=== PATIENT | male | born 1975 | race Caucasian/White ===

== ENCOUNTER → 2018-03-05 | Outpatient (CLI) | payer OTHER ==
[~2018-03-05] MED LIST: ASPI81TA28 PO; ATOR-24 PO; CARV12.52 PO; DULO60CA44 PO; DVN80 PO; ERGO500037 PO; HYDR-5688 PO; METF-384 PO; POTA10CA28 PO; SITA100T3 PO
[2018-03-05 14:29] LABS: BASO % 0.3 %; BASO ABS # 0.04 K/uL (0-0.2); EOS % 2.7 %; EOS ABS # 0.36 K/uL (0-0.5); HEMATOCRIT 42.8 % (42-52); HEMOGLOBIN 14.6 g/dL (14.0-18.0); IG# 0.05 K/uL (0.00-0.02); LYMPH % 22.6 %; LYMPH ABS # 3.04 K/uL (1.2-3.4); MEAN CORPUSCULAR HEMOGLOBIN 29.7 pg (25-34); MEAN CORPUSCULAR HGB CONC 34.1 g/dl (32-36); MEAN PLATELET VOLUME 10.1 fL (7.4-10.4); MONO % 5.8 %; MONO ABS # 0.78 K/uL (0.11-0.59); NEUT % 68.2 %; NEUT ABS # 9.16 K/uL (1.4-6.5); PLATELET COUNT 348 K/uL (130-400); RED CELL DISTRIBUTION WIDTH CV 12.9 % (11.5-14.5); RED CELL DISTRIBUTION WIDTH SD 41.1 fL (36.4-46.3); WHITE BLOOD COUNT 13.43 K/uL (4.8-10.8)
[2018-03-06 06:32] LABS: HEMOGLOBIN A1C 8.7 % (4.5-5.6)
== END | disposition home or self-care (01) ==
LOC: C.CPL 13:01
PROVIDERS: ATTEND Orthopaedic Surgery
DX: Z01.810 Encounter for preprocedural cardiovascular examination (principal); Z01.812 Encounter for preprocedural laboratory examination

== ENCOUNTER 2018-03-12 11:39 | Day surgery (SDC) | payer OTHER ==
[2018-03-03 11:41] VITALS: BMI 46.0
--- NOTE | 2018-03-11 11:43 | History and Physical ---
History & Physical Date Mar 11, 2018. Chief Complaint Patient presents as a 40-year-old white male with complaints of ongoing pain treatment to his left knee with a exam consistent of a torn medial meniscus he has positive Levar circumduction findings medial joint line pain and tenderness a small to moderate effusion no evidence of ligamentous instability presents with an MRI finding of a torn medial meniscus History of Present Illness Ongoing points of pain about his left knee consistent with that of a torn medial meniscus is been no response to conservative therapy including physical therapy anti-inflammatories relative rest activity modification MRI since that MRI is consistent with that of a medial meniscal tear clinicals physical examination is consistent with that of medial meniscal tear consistent with medial joint line pain tenderness Levar findings mild to moderate effusion no ligamentous instability is noted the patient is a 42 year old male with complaints of Past Medical/Surgical History Patient's past medical past medical history significant for myocardial infarction in 2013 as well as diabetes mellitus and sleep apnea for which she is on home CPAP she Additional History Hepatic Disease: No Endocrine Disorder: Yes Kidney Disease: No Hypertension: Yes Heart Disease: Yes Bleeding Tendencies: No Infectious Diseases: No Allergies Coded Allergies: No Known Allergies (Unverified , 03/03/18) Home Medications Scheduled Aspirin (Aspirin Ec), 81 MG PO QAM Atorvastatin (Lipitor), 40 MG PO QPM Carvedilol (Coreg), 12.5 MG PO BID Duloxetine Hcl (Cymbalta), 60 MG PO QAM Ergocalciferol (Vitamin D 45855 Unit), 50,000 UNIT PO WK Metformin Hcl (Glucophage), 1,000 MG PO BID Potassium Chloride (Micro-K Ext Rel), 10 MEQ PO BID Sitagliptin Phosphate (Januvia), 100 MG PO QAM Valsartan (Diovan), 80 MG PO QAM Scheduled PRN Hydrocodone/Acetaminophen 5MG/325MG ([place] 5MG/325MG), 1 TABLET PO PRN PRN for Pain Physical Examination Skin: warm/dry, no rash Eyes: normal inspection, EOMI, sclerae normal ENT: normal ENT inspection, pharynx normal Head: normocephalic, atraumatic Neck: supple, no adenopathy, trachea midline Respiratory/Chest: lungs clear, normal breath sounds, no respiratory distress Cardiovascular: regular rate, rhythm, no edema, no murmur Abdomen / GI: normal bowel sounds, non tender Back: normal inspection Extremities: normal inspection, normal range of motion, + pertinent finding ( Findings are consistent with that of the medial joint line pain and tenderness of the left knee positive Levar circumduction findings consistent with that of a tear of the medial meniscus) Neurologic/Psych: no motor/sensory deficits, alert, normal reflexes, oriented x 3 Diagnosis Left knee complex tear posterior horn medial meniscus no response to conservative management Plan of Treatment Plans for left knee arthroscopy partial posterior medial meniscectomy pending findings at time of surgery
[~2018-03-12] VITALS: Ht 180.3 cm; Wt 150.0 kg
[~2018-03-12 11:39] MED LIST changes: +ATROPINE SULFATE 0.1 MG/ML 5ML SYR IV PRN; +EpHEDrine SULFATE INJ 50 MG/ML AMP IV PRN; +LACTATED RINGER'S 1000ML 1,000 ML IV SCH; +ONDANSETRON INJ 2 MG/ML 2 ML VIAL IV PRN
[2018-03-12 12:23] VITALS: BP 128/75; PULSE 90; TEMP 37.4; O2SAT 95; Ht 180.3 cm; Wt 150.0 kg
[2018-03-12] MEDS ORDERED: FENTANYL CITRATE INJ 50 MCG/1 ML 2 ML VIAL ONE ×2 (12:56→15:08)
[2018-03-12] MEDS ORDERED: MIDAZOLAM HCL 1 MG/ML 2ML VIAL ONE ×2 (12:56)
[2018-03-12] MEDS ORDERED: NURSING VERBAL MED ORDER ONE (13:00)
[2018-03-12] MEDS ORDERED: CEFAZOLIN 3000MG IV PUSH 22.5 ML IV STA (13:01)
--- NOTE | 2018-03-12 13:01 | History & Physical Bridge Note ---
H&P Re-Evaluation Bridge Note: I have examined the patient, reviewed the History & Physical and in the interval since the performance of the History & Physical I have noted the following changes of clinical significance: No changes noted
[2018-03-12] MEDS ORDERED: BUPIVACAINE/EPINEPHRINE 0.5% MPF 1:200,000 30 ML VIAL ONE (14:01)
[2018-03-12] MEDS ORDERED: SODIUM CHLORIDE 0.9% 1000ML 1,000 ML IV SCH (14:03)
--- NOTE | 2018-03-12 14:05 | Discharge Instructions ---
Discharge Instructions Date of Service Mar 12, 2018. Visit Reason for Visit: Left Knee Other Medial Meniscus Tear, Current Inju Discharge Discharge Diagnosis / Problem: left knee arthroscopy partial menisectomy Discharge Goals Goal(s): Decrease discomfort, Improve function, Increase independence Activity Recommendations Activity Limitations: as noted below Weightbearing Status: Left weightbearing (as tolerated) Anesthesia . Post Anesthesia Instructions: If you have had General Anesthesia or IV Sedation: * Do not drive today. * Resume driving when surgeon permits. * Do not make important decisions or sign legal documents today. * Call surgeon for: 1. Temperature elevations greater than 101 degrees F. 2. Uncontrollable pain. 3. Excessive bleeding. 4. Persistent nausea and vomiting. 5. Medication intolerance (nausea, vomiting or rash). * For nausea and vomiting use only clear liquids such as: tea, soda, bouillon until nausea subsides, then gradually increase diet as tolerated. * If you have any concerns or questions, call your surgeon's office. If physician is unavailable and it is an emergency, call 911 or go to the nearest emergency room. . Instructions / Follow-Up Instructions / Follow-Up ACTIVITY RECOMMENDATIONS: * You may walk on the leg with or without crutches as comfort permits. * Bending of the knee should start at once. * Do not shower for 48 hours following surgery. SPECIAL CARE INSTRUCTIONS: * You may cleanse the skin adjacent to the small wounds with soap and water at the time of the first dressing change. * The application of an ice bag to the front and sides of the knee will decrease swelling and discomfort for the first 48 hours. * The small incisions may be sore and develop bruising. This bruising does not require any special care. SPECIAL PRECAUTIONS: * If you experience unusual pain unrelieved by prescriptions, temperature elevation (100 degrees F. or above) or progressive swelling or bleeding, you should contact our office at for further evaluation. * You may have been prescribed pain medication. If you experience nausea and/or fine skin rash, discontinue this medication and contact our office at for an alternate medication. DRESSING: * Dressing should be comfortable and absorb any leakage of fluid and/or blood. * The dressing may become moist or bloodstained. * Dressing may be removed _48 hours_ after surgery and bandaids placed over the small surgical incisions. If can be removed sooner if it becomes very soiled or loose. * Bandaids may be used over next several days as needed and can be discontinued when there is not further drainage from the wounds. FOLLOW UP VISIT: If appointment is not already scheduled: Please call [facility] to make a follow-up appointment for your surgery at . Diet Recommendations Recommended Home Diet: resume previous diet Pending Studies Studies pending at discharge: no Medical Emergencies . Who to Call and When: Medical Emergencies: If at any time you feel your situation is an emergency, please call 911 immediately. . Non-Emergent Contact Non-Emergency issues call your: Primary Care Provider, Surgeon . . "Provider Documentation" section prepared by Sang Richard. . [place] Drug Monitoring Program Search Results: patient reviewed within database, no issues identified
[2018-03-12] MEDS ORDERED: ONDANSETRON INJ 2 MG/ML 2 ML VIAL IV PRN (14:15)
[2018-03-12] MEDS ORDERED: HYDROCODONE/ACETAMIN 5/325MG TAB PO PRN ×2 (14:15)
[2018-03-12] MEDS ORDERED: HYDR-5688 PO (14:18)
[2018-03-12] MEDS ORDERED: PROPOFOL IV EMULSION 10 MG/ML 20 ML VIAL IV ONE (14:28)
[2018-03-12] MEDS ORDERED: DEXAMETHASONE SOD INJ 4 MG/ML VIAL ONE ×2 (14:28→14:29)
[2018-03-12] MEDS ORDERED: ONDANSETRON INJ 2 MG/ML 2 ML VIAL ONE (14:28)
[2018-03-12] MEDS ORDERED: LIDOCAINE HCL 2% 2 ML VIAL (20MG/ML) ONE (14:28)
[2018-03-12] MEDS ORDERED: SUCCINYLCHOLINE CHLORIDE 20 MG/ML 10 ML VIAL IV ONE (14:28)
--- NOTE | 2018-03-12 14:45 | [facility] Post Operative Brief Note ---
Immediate Operative Summary Operative Date Mar 12, 2018. Pre-Operative Diagnosis Left knee complex torn medial meniscus. Post-Operative Diagnosis Same as preop. Procedure(s) Performed Left Knee Arthroscopy with Partial Medial Menisectomy Surgeon Dr. Coelho Hearing Aid Repair Technician Surgeon(s) None Estimated Blood Loss 2 ml Findings Consistent with Post-Op Diagnosis Specimens None. Drains None Anesthesia Type General Complication(s) none Disposition Disposition: Recovery Room / PACU
--- NOTE | 2018-03-12 14:49 | [facility] Operative Report ---
Operative Report Operative Date Mar 12, 2018. Pre-Operative Diagnosis Left knee complex torn medial meniscus. Post-Operative Diagnosis Same as preop. Procedure(s) Performed Left Knee Arthroscopy with Partial Medial Menisectomy Surgeon Dr. Coelho Grounds Maintenance Supervisor Surgeon(s) None Estimated Blood Loss 2 ml Findings Patient presents with a complex tear posterior horn medial meniscus verify the MRI is clinical examination consistent with torn medial meniscus with positive Levar circumduction findings medial joint line pain tenderness with mild to moderate effusion palpable click along the posterior medial joint line Specimens None. Drains None Anesthesia Type General Complication(s) none Disposition Recovery Room / PACU Indications Failed attempts at conservative management including physical therapy bracing patient presents with ongoing mechanical symptoms with small to moderate effusion medial joint line pain and tenderness positive Levar circumduction findings exam as well as MRI scan consistent of a tear of the posterior horn of the medial meniscus Description of Procedure After proper prepping draping the left lower extremity are scop examination beginning the region of the medial compartment revealed to be evidence of a tear of the posterior horn of the medial meniscus involving the inner third is complex in nature the anterior posterior fusion was visualized and probably to be intact lateral meniscus was probed to be intact with some mild grade II chondromalacia involving the lateral tibial plateau patellofemoral joint was otherwise pristine there is some mild chondromalacia medial femoral condyle grade 2 involving approximately 2 x 2 centimeter her area in the medial weightbearing portion there is a complex tear of the posterior third of the inner third portion that had a flap radial parrot-beak type tear and partial posterior horn medial meniscectomy performed on particular matter debridement of the meniscal edge was trimmed back to stable margin with a series of meniscal punches as well as meniscal tremors subscale. Microdebriders removed medial lateral gutters were explored and no loose bodies were noted all pigmented region which was removed skin portals were closed with 4-0 nylon sterile compressive dressing was placed intravaginally articular injection of half percent Marcaine with epinephrine was injected into the knee joint compression dressing placed patient taken recovery in stable condition op report dictated by Meliton. I attest to the content of the Intraoperative Record and any orders documented therein. Any exceptions are noted below.
[2018-03-12] MEDS: FENTANYL CITRATE INJ 50 MCG/1 ML 2 ML VIAL IV PRN ×4 (15:07→15:22)
--- NOTE | 2018-03-12 15:40 | Anesthesiology Progress Note ---
Anesthesia Post Op Note Date & Time Mar 12, 2018 at 15:40 Vital Signs Pain Intensity: 4 Vital Signs Past 12 Hours Date Time Temp Pulse Resp B/P (MAP) Pulse Ox O2 Delivery O2 Flow Rate FiO2 03/12/18 15:30 97 14 124/86 95 Room Air 03/12/18 15:20 98 14 145/94 92 Nasal Cannula 2 03/12/18 15:10 107 14 127/79 89 Nasal Cannula 2 03/12/18 15:00 106 14 120/80 95 Oxymask 10 03/12/18 14:53 36.2 111 14 125/80 94 Oxymask 10 03/12/18 13:57 88 18 103/65 (78) 99 Oxymask 7 03/12/18 13:52 84 18 112/60 (77) 99 Oxymask 7 03/12/18 13:47 84 18 100/72 (81) 98 Oxymask 7 03/12/18 13:39 88 18 125/67 (86) 98 Oxymask 7 03/12/18 13:33 85 16 122/72 (89) 98 Oxymask 5 03/12/18 13:27 87 16 136/77 (96) 98 Oxymask 5 03/12/18 12:23 37.4 90 20 128/75 (92) 95 Room Air Notes Mental Status: alert / awake / arousable, participated in evaluation Pt Amnestic to Procedure: Yes Nausea / Vomiting: adequately controlled Pain: adequately controlled Airway Patency, RR, SpO2: stable & adequate BP & HR: stable & adequate Hydration State: stable & adequate Anesthetic Complications: no major complications apparent
[2018-03-12 15:47] VITALS: BP 157/88; PULSE 106; TEMP 36.9; O2SAT 95
[2018-03-12 16:15] VITALS: BP 135/67; PULSE 98; O2SAT 94
[2018-03-12 16:35] VITALS: BP 139/93; PULSE 108; TEMP 36.4; O2SAT 94
== END 2018-03-12 16:40 | disposition home or self-care (01) ==
LOC: C.ACU 11:39
PROVIDERS: ATTEND Orthopaedic Surgery
DX: S83.232A Complex tear of medial meniscus, current injury, left knee, initial encounter (principal); X58.XXXA Exposure to other specified factors, initial encounter; I25.2 Old myocardial infarction; E11.9 Type 2 diabetes mellitus without complications; G47.33 Obstructive sleep apnea (adult) (pediatric); I25.10 Atherosclerotic heart disease of native coronary artery without angina pectoris; I10 Essential (primary) hypertension; Z79.899 Other long term (current) drug therapy; Z79.82 Long term (current) use of aspirin; F17.220 Nicotine dependence, chewing tobacco, uncomplicated; E66.01 Morbid (severe) obesity due to excess calories; Z68.42 Body mass index [BMI] 45.0-49.9, adult

== ENCOUNTER → 2018-07-14 | Outpatient (CLI) | payer OTHER ==
[~2018-07-14] MED LIST changes: -ATROPINE SULFATE 0.1 MG/ML 5ML SYR IV PRN; -EpHEDrine SULFATE INJ 50 MG/ML AMP IV PRN; -LACTATED RINGER'S 1000ML 1,000 ML IV SCH; -ONDANSETRON INJ 2 MG/ML 2 ML VIAL IV PRN
== END | disposition home or self-care (01) ==
LOC: C.RDSM 10:05
PROVIDERS: ATTEND Physical Medicine & Rehabilitation Sports Medicine
DX: M25.561 Pain in right knee (principal); M25.562 Pain in left knee